=== PATIENT | male | born 1950 | race Caucasian/White ===

== ENCOUNTER 2021-12-11 17:14 | Emergency (ER) | payer MEDICARE ==
--- NOTE | 2021-12-11 17:18 | ERPHSYRPT ---
- History of Present Illness Time Seen by Provider: 12/11/21 17:18 Source: patient Exam Limitations: no limitations Physician History: This is a 71-year-old white male patient of nurse practitioner Karely Douglas who has a history of atrial fibrillation/flutter with a pacemaker and defibrillator in place and is on Xarelto who also has hypertension, elevated cholesterol and gastroesophageal reflux disease. The patient was brought in by a friend who helps care for him. 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 He felt hot came back in the house and then put a jacket on and went back outside to finish mowing. In the evening he started having a sore throat. This morning, his throat continued to feel worse and he was not speaking as clearly as usual per the patient friend. He is not short of breath. He is tolerating his saliva and is able to drink liquids without any problems. He arrives emergency department without stridor. He was having some chest pain in the last couple days but it was fleeting and intermittent and mild. He does not have chest pain at this time. Patient is scheduled for sleep study on 12/13/2021. He does have a low- grade fever today upon arrival to the emergency department. Timing/Duration: yesterday (Evening) Activities at Onset: none Severity of Dyspnea-Max: none Severity of Dyspnea-Current: none Possible Cause: no prior episodes Modifying Factors: Improves With: other (Mild sore throat when swallowing) Associated Symptoms: No chest pain/discomfort (No chest pain now but did have some intermittent fleeting mild anterior nonradiating chest tightness in the last couple of days) Allergies/Adverse Reactions: penicillin G Allergy (Verified 03/30/13 09:58) Home Medications: Omeprazole 20 MG [Prilosec 20 mg] 20 mg PO DAILY 03/30/13 [History] Amiodarone HCl [Pacerone] 200 mg PO DAILY 12/11/21 [History] Carvedilol [Coreg] 25 mg PO DAILY 12/11/21 [History] Finasteride 5 mg [Proscar 5 MG] 5 mg PO DAILY 12/11/21 [History] Pravastatin Sodium 20 mg PO DAILY 12/11/21 [History] Rivaroxaban [Xarelto] 20 mg PO DAILY 12/11/21 [History] Spironolactone 25 mg [Aldactone 25 MG] 25 mg PO DAILY 12/11/21 [History] Tamsulosin HCl 0.4 mg [Flomax 0.4 MG] 0.4 mg PO DAILY 12/11/21 [History] Hx Tetanus, Diphtheria Vaccination/Date Given: No Hx Influenza Vaccination/Date Given: No Hx Pneumococcal Vaccination/Date Given: No Travel Risk - International Travel Have you traveled outside of the country in past 3 weeks: No - Coronavirus Screening Are you exhibiting any of the following symptoms?: Yes Symptoms: Fever Close contact with a COVID-19 positive Pt in past 14-21 Days: No - Review of Systems Constitutional: Fever Eyes: No Symptoms Ears, Nose, & Throat: Throat Pain Respiratory: No Cough, No Dyspnea, No Stridor, No Wheezing Cardiac: Chest Pain (None now but in the last 2 to 3 days has been intermittent mild brief nonradiating anterior chest wall pain) Abdominal/Gastrointestinal: No Symptoms Genitourinary Symptoms: No Symptoms Musculoskeletal: No Symptoms Skin: No Symptoms Neurological: No Symptoms Psychological: No Symptoms Endocrine: No Symptoms Hematologic/Lymphatic: No Symptoms Immunological/Allergic: No Symptoms All Other Systems: Reviewed and Negative - Past Medical History Pertinent Past Medical History: Yes GI Medical History: GERD - Past Surgical History Past Surgical History: No - Social History Smoking Status: Former smoker Exposure to second hand smoke: No Drug Use: none Patient Lives Alone: No - Nursing Vital Signs Nursing Vital Signs: Initial Vital Signs Temperature 100.2 F 12/11/21 17:18 Pulse Rate 81 12/11/21 17:18 Respiratory Rate 22 12/11/21 17:18 Blood Pressure 177/99 12/11/21 17:18 O2 Sat by Pulse Oximetry 98 12/11/21 17:18 Pain Scale Pain Intensity 4 - Physical Exam General Appearance: no apparent distress, alert Eye Exam: PERRL/EOMI, eyes nml inspection Ears, Nose, Throat Exam: hearing grossly normal, pharyngeal erythema (Mild with associated mild pharyngeal swelling) Neck Exam: normal inspection, non-tender, supple, full range of motion Respiratory Exam: normal breath sounds, lungs clear, airway intact, No chest tenderness, No respiratory distress, No accessory muscle use, No rhonchi, No wheezing, No stridor Cardiovascular/Chest Exam: normal heart sounds, regular rate/rhythm Abdominal/Gastrointestinal Exam: soft, normal bowel sounds, No tenderness Rectal Exam: not done Extremity Exam: non-tender, normal range of motion, no calf tenderness, no pedal edema, pelvis stable, No normal inspection Neurologic Exam: alert, oriented x 3, cooperative, 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 There are few PVCs present on today's EKG. There is prolonged CA interval. When compared to EKG dated 03/30/2013 there is resolution of his atrial fibrillation/flutter) Ordered Tests: Active Orders 24 hr Category Date Time Status EKG-ER Only STAT Care 12/11/21 17:32 Active IV Insertion STAT Care 12/11/21 17:32 Active Pulse Oximetry (ED) STAT Care 12/11/21 17:32 Active CHEST 1 VIEW (PORTABLE) Stat Exams 12/11/21 17:33 Taken NECK SOFT TISSUE Stat Exams 12/11/21 17:34 Taken BLOOD CULTURE Stat Lab 12/11/21 17:40 Received CBC W DIFF Stat Lab 12/11/21 17:30 Completed CMP Stat Lab 12/11/21 17:30 Completed Union Screen Stat Lab 12/11/21 17:30 Completed PROTIME WITH INR Stat Lab 12/11/21 17:30 Completed TROPONIN Q3H Lab 12/11/21 17:30 Completed TROPONIN Q3H Lab 12/11/21 20:45 Ordered TROPONIN Q3H Lab 12/11/21 23:45 Ordered TROPONIN Q3H Lab 12/12/21 02:45 Ordered TROPONIN Q3H Lab 12/12/21 05:45 Ordered Medication Summary Discontinued Medications Generic Name Dose Route Start Last Admin Trade Name Freq PRN Reason Stop Dose Admin Hydrocodone Bitart/Acetaminophen 10 ml 12/11/21 17:34 12/11/21 17:39 Hydrocodone/Acetaminophen 5 Ml Udcup PO 12/11/21 17:35 10 ml STAT STA Administration Hydrocodone Bitart/Acetaminophen Confirm 12/11/21 17:38 Hydrocodone/Acetaminophen 5 Ml Udcup Administered 12/11/21 17:39 Dose 10 ml .ROUTE .STK-MED ONE Methylprednisolone Sodium 0 mg 12/11/21 17:35 12/11/21 17:39 Succinate 125 mg/ Sterile IV 12/11/21 17:36 125 mg Water 2 ml STAT ONE Administration Methylprednisolone Sodium Succinate Confirm 12/11/21 17:38 Methylprednis Sod Succ 125 Mg/2 Ml Vial Administered 12/11/21 17:39 Dose 125 mg .ROUTE .STK-MED ONE Sterile Water Confirm 12/11/21 17:38 Water For Injection,Sterile 10 Ml Vial Administered 12/11/21 17:39 Dose 10 ml IJ .STK-MED ONE Lab/Rad Data: Laboratory Result Diagrams 12/11/21 17:30 12/11/21 17:30 Laboratory Results 12/11/21 12/11/21 12/11/21 Range/Units 18:01 17:40 17:30 WBC (4.0-10.5) K/mm3 RBC (4.1-5.6) M/mm3 Hgb (12.5-18.0) gm/dl Hct (42-50) % MCV (78-100) fl MCH (26-32) pg MCHC (32-36) g/dl RDW (11.5-14.0) % Plt Count (150-450) K/mm3 MPV (7.5-11.0) fl Gran % (36.0-66.0) % Eos # (Auto) (0-0.5) Absolute Lymphs (auto) (1.0-4.6) Absolute Monos (auto) (0.0-1.3) Lymphocytes % (24.0-44.0) % Monocytes % (0.0-12.0) % Eosinophils % (0.00-5.0) % Basophils % (0.0-0.4) % Absolute Granulocytes (1.4-6.9) Basophils # (0-0.4) PT (9.4-12.5) SECONDS INR (0.8-3.0) Sodium (137-145) mmol/L Potassium (3.5-5.1) mmol/L Chloride (98-107) mmol/L Carbon Dioxide (22-30) mmol/L Anion Gap (5-15) MEQ/L BUN (9-20) mg/dL Creatinine (0.66-1.25) mg/dL Estimated GFR ML/MIN Glucose (74-106) mg/dL Calcium (8.4-10.2) mg/dL Total Bilirubin (0.2-1.3) mg/dL AST (17-59) U/L ALT (0-50) U/L Alkaline Phosphatase (38-126) U/L Troponin I (0.000-0.034) ng/mL Serum Total Protein (6.3-8.2) g/dL Albumin (3.5-5.0) g/dL Monoscreen POSITIVE (Negative) Influenza Type A Ag NEGATIVE (NEGATIVE) Influenza Type B Ag NEGATIVE (NEGATIVE) RSV (PCR) NEGATIVE (Negative) SARS-CoV-2 (PCR) NEGATIVE (NEGATIVE) Group A Strep Antibody NOT DETECTED (NEGATIVE) 12/11/21 12/11/21 12/11/21 Range/Units 17:30 17:30 17:30 WBC (4.0-10.5) K/mm3 RBC (4.1-5.6) M/mm3 Hgb (12.5-18.0) gm/dl Hct (42-50) % MCV (78-100) fl MCH (26-32) pg MCHC (32-36) g/dl RDW (11.5-14.0) % Plt Count (150-450) K/mm3 MPV (7.5-11.0) fl Gran % (36.0-66.0) % Eos # (Auto) (0-0.5) Absolute Lymphs (auto) (1.0-4.6) Absolute Monos (auto) (0.0-1.3) Lymphocytes % (24.0-44.0) % Monocytes % (0.0-12.0) % Eosinophils % (0.00-5.0) % Basophils % (0.0-0.4) % Absolute Granulocytes (1.4-6.9) Basophils # (0-0.4) PT 16.4 H (9.4-12.5) SECONDS INR 1.39 (0.8-3.0) Sodium 141 (137-145) mmol/L Potassium 4.5 (3.5-5.1) mmol/L Chloride 105 (98-107) mmol/L Carbon Dioxide 27 (22-30) mmol/L Anion Gap 14.2 (5-15) MEQ/L BUN 21 H (9-20) mg/dL Creatinine 0.92 (0.66-1.25) mg/dL Estimated GFR > 60.0 ML/MIN Glucose 105 (74-106) mg/dL Calcium 9.2 (8.4-10.2) mg/dL Total Bilirubin 0.70 (0.2-1.3) mg/dL AST 29 (17-59) U/L ALT 21 (0-50) U/L Alkaline Phosphatase 98 (38-126) U/L Troponin I < 0.012 (0.000-0.034) ng/mL Serum Total Protein 7.4 (6.3-8.2) g/dL Albumin 4.3 (3.5-5.0) g/dL Monoscreen (Negative) Influenza Type A Ag (NEGATIVE) Influenza Type B Ag (NEGATIVE) RSV (PCR) (Negative) SARS-CoV-2 (PCR) (NEGATIVE) Group A Strep Antibody (NEGATIVE) 12/11/21 Range/Units 17:30 WBC 10.3 (4.0-10.5) K/mm3 RBC 4.60 (4.1-5.6) M/mm3 Hgb 13.5 (12.5-18.0) gm/dl Hct 40.9 L (42-50) % MCV 88.9 (78-100) fl MCH 29.3 (26-32) pg MCHC 33.0 (32-36) g/dl RDW 14.9 H (11.5-14.0) % Plt Count 334 (150-450) K/mm3 MPV 10.5 (7.5-11.0) fl Gran % 65.7 (36.0-66.0) % Eos # (Auto) 0.39 (0-0.5) Absolute Lymphs (auto) 1.83 (1.0-4.6) Absolute Monos (auto) 1.30 (0.0-1.3) Lymphocytes % 17.8 L (24.0-44.0) % Monocytes % 12.6 H (0.0-12.0) % Eosinophils % 3.8 (0.00-5.0) % Basophils % 0.1 (0.0-0.4) % Absolute Granulocytes 6.75 (1.4-6.9) Basophils # 0.01 (0-0.4) PT (9.4-12.5) SECONDS INR (0.8-3.0) Sodium (137-145) mmol/L Potassium (3.5-5.1) mmol/L Chloride (98-107) mmol/L Carbon Dioxide (22-30) mmol/L Anion Gap (5-15) MEQ/L BUN (9-20) mg/dL Creatinine (0.66-1.25) mg/dL Estimated GFR ML/MIN Glucose (74-106) mg/dL Calcium (8.4-10.2) mg/dL Total Bilirubin (0.2-1.3) mg/dL AST (17-59) U/L ALT (0-50) U/L Alkaline Phosphatase (38-126) U/L Troponin I (0.000-0.034) ng/mL Serum Total Protein (6.3-8.2) g/dL Albumin (3.5-5.0) g/dL Monoscreen (Negative) Influenza Type A Ag (NEGATIVE) Influenza Type B Ag (NEGATIVE) RSV (PCR) (Negative) SARS-CoV-2 (PCR) (NEGATIVE) Group A Strep Antibody (NEGATIVE) - Progress Progress: improved, re-examined Air Movement: good Progress Note: 12/11/21 18:21 Chest x-ray shows no acute cardiopulmonary process. X-ray of the soft tissue of the neck there is a question of a area of inflammation in the infraglottic region. I will have [facility] read the film. Depending on their interpretation, we may or may not need to obtain a CT scan of the soft tissue of the neck. Clinically, patient does not have any shortness of breath, he is oxygenating well there is no stridor. 12/11/21 18:58 The x-ray of the soft tissues of the neck was sent to [facility]. They do not see any acute pathology/process in the soft tissues in the neck. Blood Culture(s) Obtained: Yes Counseled pt/family regarding: lab results, diagnosis, need for follow-up, rad results - Departure Departure Disposition: Home Clinical Impression: Mononucleosis, Viral pharyngitis Condition: Stable Critical Care Time: No Referrals: JHOANA DOUGLAS [COURTESY STAFF] - Follow up/PCP as directed Additional Instructions: Drink plenty of cold water. Take your medication as prescribed. Follow-up with your primary care physician for further management. Prescriptions: Hydrocodone/Acetaminophen [Hydrocodone-Acetamn 7.5-325/15] 10 ml PO Q8H PRN PRN #120 ml MDD 30 ml PRN Reason: Cough Prednisone 10 mg [Deltasone 10 mg] 10 mg PO TID #12 tablet
[2021-12-11] MEDS ORDERED: HYDROCODONE-ACETAMIN 2.5-108/5 ML SOLUTION PO STA ×2 (17:34→19:04)
[2021-12-11] MEDS ORDERED: solu-MEDROL 125 MG, Sterile H2O 10 ml 2 ML IV ONE ×2 (17:35)
[2021-12-11] MEDS ORDERED: Sterile H2O 10 ml IJ ONE (17:38)
[2021-12-11] MEDS ORDERED: solu-MEDROL ONE (17:38)
[2021-12-11] MEDS ORDERED: HYDROCODONE-ACETAMIN 2.5-108/5 ML SOLUTION ONE ×2 (17:38→19:09)
[2021-12-11 18:00] LABS: Absolute Neutrophil Ct (ANC) 6.75 (1.4-6.9); Basophil (Absolute #) 0.01 (0-0.4); Eosinophil % 3.8 % (0.00-5.0); Eosinophil (Absolute #) 0.39 (0-0.5); Hematocrit 40.9 % (42-50); Hemoglobin 13.5 gm/dl (12.5-18.0); Lymphocyte (Absolute #) 1.83 (1.0-4.6); Lymphocytes % 17.8 % (24.0-44.0); Mean Cell Volume 88.9 fl (78-100); Mean Corpuscular Hemoglobin 29.3 pg (26-32); Mean Platelet Volume 10.5 fl (7.5-11.0); Monocytes % 12.6 % (0.0-12.0); Neutrophil % 65.7 % (36.0-66.0); Platelet Count 334 K/mm3 (150-450); Red Cell Distribution Width 14.9 % (11.5-14.0); White Blood Count 10.3 K/mm3 (4.0-10.5)
[2021-12-11 18:03] LABS: INR 1.39 (0.8-3.0); PROTIME 16.4 SECONDS (9.4-12.5)
[2021-12-11 18:21] LABS: ALBUMIN 4.3 g/dL (3.5-5.0); ALKALINE PHOSPHATASE 98 U/L (38-126); ANION GAP 14.2 MEQ/L (5-15); BLOOD UREA NITROGEN 21 mg/dL (9-20); CHLORIDE 105 mmol/L (98-107); Calcium 9.2 mg/dL (8.4-10.2); Carbon Dioxide 27 mmol/L (22-30); Creatinine 1 0.92 mg/dL (0.66-1.25); EST GLOMERULAR FILTRATION RATE > 60.0 ML/MIN; Glucose 105 mg/dL (74-106); Potassium 4.5 mmol/L (3.5-5.1); SGOT/AST 29 U/L (17-59); SGPT/ALT 21 U/L (0-50); SODIUM 141 mmol/L (137-145); Total Protein 7.4 g/dL (6.3-8.2)
[2021-12-11 18:43] LABS: INFLUENZA A NEGATIVE (NEGATIVE); INFLUENZA B NEGATIVE (NEGATIVE); RESPIRATORY SYNCTIAL VIRUS NEGATIVE (Negative); SARS-CoV-2 Xpert Express NEGATIVE (NEGATIVE)
[2021-12-11] MEDS ORDERED: DELTASONE 10 MG PO ONE (19:04)
[2021-12-11 19:06] VITALS: BP 162/110; PULSE 77; O2SAT 95
[2021-12-11] MEDS ORDERED: DELTASONE 20 MG ONE (19:09)
--- NOTE | 2021-12-11 19:36 | XRAY ---
Indication: Cough and hoarseness. Comparison: March 30, 2013. Portable chest remains hyperinflated and clear. Heart not enlarged for AP portable technique with new left pacemaker. Bony thorax intact. Impression: Continued nonacute hyperinflated chest with chronic features.
--- NOTE | 2021-12-11 19:38 | XRAY ---
Indication: Cough and hoarseness. Comparison: None AP/lateral soft tissue neck demonstrates widely patent supra and infraglottic airway. Normal epiglottis. Osseous structures intact with osteopenia and mild multilevel cervical degenerative spondylosis. Patient edentulous. Comment: Preliminary interpretation made by C. No critical discrepancy.
[2021-12-12] MEDS ORDERED: DELTASONE 20 MG PO SCH (10:00)
== END 2021-12-11 19:33 | disposition home or self-care (01) ==
LOC: ED 17:14
DX: B27.90 Infectious mononucleosis, unspecified without complication (principal); J02.9 Acute pharyngitis, unspecified; R50.9 Fever, unspecified; I10 Essential (primary) hypertension; E78.5 Hyperlipidemia, unspecified; K21.9 Gastro-esophageal reflux disease without esophagitis; Z79.01 Long term (current) use of anticoagulants; Z79.891 Long term (current) use of opiate analgesic; Z79.52 Long term (current) use of systemic steroids; Z95.810 Presence of automatic (implantable) cardiac defibrillator
CPT/HCPCS: 0241U; 36000; 36415; 70360; 71045; 80053; 84484; 85025; 85610; 86308; 87040; 87651; 93005; 94760; 96374; 99284; J2930; A9270-GY

== ENCOUNTER 2022-08-17 07:50 | Emergency (ER) | payer MEDICARE ==
[2022-08-17] MEDS ORDERED: Sodium Chloride 0.9% 1000 ML 1,000 ML IV SCH (08:15)
[2022-08-17] MEDS ORDERED: BABY ASPIRIN 81 MG CHEW PO ONE (08:20)
--- NOTE | 2022-08-17 08:20 | ERPHSYRPT ---
- History of Present Illness Time Seen by Provider: 08/17/22 08:00 Historian: patient Exam Limitations: no limitations Patient Subjective Stated Complaint: Patient states "I started having right sided chest pain at 0400 this morning. I vomited once. I woke up shaking and my chest was hurting." Triage Nursing Assessment: Patient ambulated to ER bed with steady but slumped over gait. Alert and oriented x3. Accompanied by brother in law who helps take care of patient. No apparent respiratory distress. Patient calm and cooperative. Reports right sided chest pain that does not radiate. States he vomited one time this morning and had some dizziness this morning. Reported that chest pain comes and goes. Physician History: Patient is a 71-year-old male who presents with a complaint of chest pain he awoke from sleep with it this morning he was quite dizzy he was trembling had some nausea vomited once. He also was diaphoretic he is on Xarelto for his pacemaker defibrillator. He has multiple risk factors including hypertension family history and unknown lipid status. His claims vice president is Dr. Arenas show Timing/Duration: today Activities at Onset: sleep Quality: aching, pressure Location: substernal Chest Pain Radiation: no radiation Severity of Pain-Max: moderate (6 of 10) Severity of Pain-Current: mild Associated Symptoms: nausea, vomiting, diaphoresis, weakness Prior Chest Pain/Cardiac Workup: cardiac cath Nitro Today/Relief: no nitro taken today Aspirin Treatment Today: no aspirin today Allergies/Adverse Reactions: penicillin G Allergy (Verified 08/17/22 07:51) Home Medications: Omeprazole 20 MG [Prilosec 20 mg] 40 mg PO DAILY 03/30/13 [History] Amiodarone HCl [Pacerone] 200 mg PO DAILY 12/11/21 [History] Carvedilol [Coreg] 25 mg PO DAILY 12/11/21 [History] Finasteride 5 mg [Proscar 5 MG] 5 mg PO DAILY 12/11/21 [History] Pravastatin Sodium 20 mg PO DAILY 12/11/21 [History] Rivaroxaban [Xarelto] 20 mg PO DAILY 12/11/21 [History] Spironolactone 25 mg [Aldactone 25 MG] 25 mg PO DAILY 12/11/21 [History] Tamsulosin HCl 0.4 mg [Flomax 0.4 MG] 0.4 mg PO DAILY 12/11/21 [History] Famotidine 40 mg PO DAILY 08/17/22 [History] Hx Tetanus, Diphtheria Vaccination/Date Given: No Hx Influenza Vaccination/Date Given: Yes Hx Pneumococcal Vaccination/Date Given: Yes Immunizations Up to Date: Yes Travel Risk - International Travel Have you traveled outside of the country in past 3 weeks: No - Coronavirus Screening Are you exhibiting any of the following symptoms?: No Close contact with a COVID-19 positive Pt in past 14-21 Days: No - Vaccine Status Have you recieved a Covid-19 vaccination: Yes 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: [employer] - Vaccination Dates Date of 2cond Vaccination (if applicable): unknown - Review of Systems Constitutional: No Fever, No Chills Eyes: No Symptoms Ears, Nose, & Throat: No Symptoms Respiratory: No Cough, No Dyspnea Cardiac: Chest Pain, No Edema, No Syncope Abdominal/Gastrointestinal: Nausea, Vomiting, No Abdominal Pain, No Diarrhea Genitourinary Symptoms: No Dysuria Musculoskeletal: No Back Pain, No Neck Pain Skin: No Rash Neurological: Vertigo, No Dizziness, No Focal Weakness, No Sensory Changes Psychological: No Symptoms Endocrine: No Symptoms All Other Systems: Reviewed and Negative - Past Medical History Pertinent Past Medical History: Yes Cardiac History: Coronary Artery Disease, Hypertension Respiratory History: COPD Musculoskeletal History: Arthritis GI Medical History: GERD Other Medical History: cancer-colon - Past Surgical History Past Surgical History: Yes Other Surgical History: part of colon removed. pacemaker - Social History Smoking Status: Former smoker Exposure to second hand smoke: Yes Drug Use: none Patient Lives Alone: No (with brother) - Nursing Vital Signs Nursing Vital Signs: Initial Vital Signs Temperature 97.5 F 08/17/22 07:51 Pulse Rate 63 08/17/22 07:51 Respiratory Rate 18 08/17/22 07:51 Blood Pressure 121/64 08/17/22 07:51 O2 Sat by Pulse Oximetry 97 08/17/22 07:51 Pain Scale Pain Intensity 6 - Physical Exam General Appearance: no apparent distress, alert Eye Exam: PERRL/EOMI, eyes nml inspection Ears, Nose, Throat Exam: normal ENT inspection, moist mucous membranes Neck Exam: normal inspection, non-tender, supple, full range of motion Respiratory Exam: normal breath sounds, lungs clear, No respiratory distress Cardiovascular Exam: regular rate/rhythm, normal heart sounds Gastrointestinal/Abdomen Exam: soft, No tenderness, No mass Back Exam: normal inspection, No CVA tenderness, No vertebral tenderness Extremity Exam: normal inspection, normal range of motion Neurologic Exam: alert, oriented x 3, cooperative, normal mood/affect, sensation nml, other (Patient seems slow), No motor deficits Skin Exam: normal color, warm, dry SpO2: 97 - Course Nursing assessment & vital signs reviewed: Yes EKG Interpreted by Me: RATE ([id number]), Sinus Rhythm, NORMAL AXIS, LAFB, Right Bundle Branch Block, Non-specific ST Changes Ordered Tests: Active Orders 24 hr Category Date Time Status EKG-ER Only STAT Care 08/17/22 08:05 Active IV Insertion STAT Care 08/17/22 08:05 Active CHEST 1 VIEW (PORTABLE) Stat Exams 08/17/22 08:05 Completed AMYLASE Stat Lab 08/17/22 07:55 Completed CBC W DIFF Stat Lab 08/17/22 07:55 Completed CMP Stat Lab 08/17/22 07:55 Completed D-DIMER QUANTITATIVE Stat Lab 08/17/22 07:55 Completed LIPASE Stat Lab 08/17/22 07:55 Completed Lactic Acid Stat Lab 08/17/22 08:15 Completed MAGNESIUM Stat Lab 08/17/22 07:55 Completed NT PRO BNP Stat Lab 08/17/22 07:55 Completed PROTIME WITH INR Stat Lab 08/17/22 07:55 Completed PTT Stat Lab 08/17/22 07:55 Completed TROPONIN Q4H Lab 08/17/22 07:55 Completed TROPONIN Q4H Lab 08/17/22 10:00 Completed TROPONIN Q4H Lab 08/17/22 16:15 Ordered Medication Summary Generic Name Dose Route Start Last Admin Trade Name Freq PRN Reason Stop Dose Admin Sodium Chloride 1,000 mls @ 100 mls/hr 08/17/22 08:15 08/17/22 08:23 Sodium Chloride 0.9% 1000 Ml IV 09/16/22 08:14 100 mls/hr .Q10H IDANIA Administration Discontinued Medications Generic Name Dose Route Start Last Admin Trade Name Freq PRN Reason Stop Dose Admin Aspirin 324 mg 08/17/22 08:20 08/17/22 08:23 Aspirin 81 Mg Tab.Chew PO 08/17/22 08:21 324 mg STAT ONE Administration Aspirin Confirm 08/17/22 08:21 Aspirin 81 Mg Tab.Chew Administered 08/17/22 08:22 Dose 324 mg .ROUTE .STK-MED ONE Lab/Rad Data: Laboratory Result Diagrams 08/17/22 07:55 08/17/22 07:55 Laboratory Results 08/17/22 08/17/22 08/17/22 Range/Units 10:00 08:25 08:15 WBC (4.0-10.5) x10^3/uL RBC (4.1-5.6) x10^6/uL Hgb (12.5-18.0) g/dL Hct (42-50) % MCV (78-100) fL MCH (26-32) pg MCHC (32-36) g/dL RDW (11.5-14.0) % Plt Count (150-450) x10^3/uL MPV (7.5-11.0) fL Gran % (36.0-66.0) % Immature Gran % (Auto) (0.00-0.4) % Nucleat RBC Rel Count (0.00-0.1) % Eos # (Auto) (0-0.5) x10^3/uL Immature Gran # (Auto) (0.00-0.03) x10^3u/L Absolute Lymphs (auto) (1.0-4.6) x10^3/uL Absolute Monos (auto) (0.0-1.3) x10^3/uL Absolute Nucleated RBC (0.00-0.01) x10^3u/L Lymphocytes % (24.0-44.0) % Monocytes % (0.0-12.0) % Eosinophils % (0.00-5.0) % Basophils % (0.0-0.4) % Absolute Granulocytes (1.4-6.9) x10^3/uL Basophils # (0-0.4) x10^3/uL PT (9.4-12.5) SECONDS INR (0.8-3.0) APTT (25.1-36.5) SECONDS D-Dimer (0.0-0.50) mg/L Sodium (137-145) mmol/L Potassium (3.5-5.1) mmol/L Chloride (98-107) mmol/L Carbon Dioxide (22-30) mmol/L Anion Gap (5-15) MEQ/L BUN (9-20) mg/dL Creatinine (0.66-1.25) mg/dL Estimated GFR ML/MIN Glucose (74-106) mg/dL Lactic Acid 2.0 (0.4-2.0) Calcium (8.4-10.2) mg/dL Magnesium (1.6-2.3) mg/dL Total Bilirubin (0.2-1.3) mg/dL AST (17-59) U/L ALT (0-50) U/L Alkaline Phosphatase (38-126) U/L Troponin I < 0.012 (0.000-0.034) ng/mL NT-Pro-B Natriuret Pep (0-900) pg/mL Serum Total Protein (6.3-8.2) g/dL Albumin (3.5-5.0) g/dL Amylase (30-110) U/L Lipase (23-300) U/L Influenza Type A Ag NEGATIVE (NEGATIVE) Influenza Type B Ag NEGATIVE (NEGATIVE) RSV (PCR) NEGATIVE (Negative) SARS-CoV-2 (PCR) NEGATIVE (NEGATIVE) 08/17/22 08/17/22 08/17/22 Range/Units 07:55 07:55 07:55 WBC (4.0-10.5) x10^3/uL RBC (4.1-5.6) x10^6/uL Hgb (12.5-18.0) g/dL Hct (42-50) % MCV (78-100) fL MCH (26-32) pg MCHC (32-36) g/dL RDW (11.5-14.0) % Plt Count (150-450) x10^3/uL MPV (7.5-11.0) fL Gran % (36.0-66.0) % Immature Gran % (Auto) (0.00-0.4) % Nucleat RBC Rel Count (0.00-0.1) % Eos # (Auto) (0-0.5) x10^3/uL Immature Gran # (Auto) (0.00-0.03) x10^3u/L Absolute Lymphs (auto) (1.0-4.6) x10^3/uL Absolute Monos (auto) (0.0-1.3) x10^3/uL Absolute Nucleated RBC (0.00-0.01) x10^3u/L Lymphocytes % (24.0-44.0) % Monocytes % (0.0-12.0) % Eosinophils % (0.00-5.0) % Basophils % (0.0-0.4) % Absolute Granulocytes (1.4-6.9) x10^3/uL Basophils # (0-0.4) x10^3/uL PT 18.2 H (9.4-12.5) SECONDS INR 1.81 (0.8-3.0) APTT 43.3 H (25.1-36.5) SECONDS D-Dimer < 0.19 (0.0-0.50) mg/L Sodium 136 L (137-145) mmol/L Potassium 4.6 (3.5-5.1) mmol/L Chloride 107 (98-107) mmol/L Carbon Dioxide 21 L (22-30) mmol/L Anion Gap 12.0 (5-15) MEQ/L BUN 23 H (9-20) mg/dL Creatinine 1.00 (0.66-1.25) mg/dL Estimated GFR > 60.0 ML/MIN Glucose 113 H (74-106) mg/dL Lactic Acid (0.4-2.0) Calcium 8.5 (8.4-10.2) mg/dL Magnesium 2.0 (1.6-2.3) mg/dL Total Bilirubin 0.80 (0.2-1.3) mg/dL AST 34 (17-59) U/L ALT 23 (0-50) U/L Alkaline Phosphatase 85 (38-126) U/L Troponin I < 0.012 (0.000-0.034) ng/mL NT-Pro-B Natriuret Pep 334 (0-900) pg/mL Serum Total Protein 7.1 (6.3-8.2) g/dL Albumin 4.1 (3.5-5.0) g/dL Amylase 76 (30-110) U/L Lipase 53 (23-300) U/L Influenza Type A Ag (NEGATIVE) Influenza Type B Ag (NEGATIVE) RSV (PCR) (Negative) SARS-CoV-2 (PCR) (NEGATIVE) 08/17/22 Range/Units 07:55 WBC 6.3 (4.0-10.5) x10^3/uL RBC 4.23 (4.1-5.6) x10^6/uL Hgb 12.5 (12.5-18.0) g/dL Hct 38.3 L (42-50) % MCV 90.5 (78-100) fL MCH 29.6 (26-32) pg MCHC 32.6 (32-36) g/dL RDW 14.5 H (11.5-14.0) % Plt Count 288 (150-450) x10^3/uL MPV 10.6 (7.5-11.0) fL Gran % 64.1 (36.0-66.0) % Immature Gran % (Auto) 0.3 (0.00-0.4) % Nucleat RBC Rel Count 0.0 (0.00-0.1) % Eos # (Auto) 0.27 (0-0.5) x10^3/uL Immature Gran # (Auto) 0.02 (0.00-0.03) x10^3u/L Absolute Lymphs (auto) 1.34 (1.0-4.6) x10^3/uL Absolute Monos (auto) 0.61 (0.0-1.3) x10^3/uL Absolute Nucleated RBC 0.00 (0.00-0.01) x10^3u/L Lymphocytes % 21.2 L (24.0-44.0) % Monocytes % 9.6 (0.0-12.0) % Eosinophils % 4.3 (0.00-5.0) % Basophils % 0.5 (0.0-0.4) % Absolute Granulocytes 4.06 (1.4-6.9) x10^3/uL Basophils # 0.03 (0-0.4) x10^3/uL PT (9.4-12.5) SECONDS INR (0.8-3.0) APTT (25.1-36.5) SECONDS D-Dimer (0.0-0.50) mg/L Sodium (137-145) mmol/L Potassium (3.5-5.1) mmol/L Chloride (98-107) mmol/L Carbon Dioxide (22-30) mmol/L Anion Gap (5-15) MEQ/L BUN (9-20) mg/dL Creatinine (0.66-1.25) mg/dL Estimated GFR ML/MIN Glucose (74-106) mg/dL Lactic Acid (0.4-2.0) Calcium (8.4-10.2) mg/dL Magnesium (1.6-2.3) mg/dL Total Bilirubin (0.2-1.3) mg/dL AST (17-59) U/L ALT (0-50) U/L Alkaline Phosphatase (38-126) U/L Troponin I (0.000-0.034) ng/mL NT-Pro-B Natriuret Pep (0-900) pg/mL Serum Total Protein (6.3-8.2) g/dL Albumin (3.5-5.0) g/dL Amylase (30-110) U/L Lipase (23-300) U/L Influenza Type A Ag (NEGATIVE) Influenza Type B Ag (NEGATIVE) RSV (PCR) (Negative) SARS-CoV-2 (PCR) (NEGATIVE) - Progress Progress: improved Air Movement: good Blood Culture(s) Obtained: No Antibiotics given: No - Departure Departure Disposition: Home Clinical Impression: Atypical chest pain Condition: Stable Critical Care Time: No Referrals: CORBIN ARGUETA [employer]ICER [Primary Care Provider] - Follow up/PCP as directed Instructions: Chest Pain (DC) Prescriptions: Ondansetron ODT 4 MG [Zofran Odt 4 mg] 4 mg PO Q6H PRN PRN #10 tablet PRN Reason: Vomiting
[2022-08-17] MEDS ORDERED: Sodium Chloride 0.9% 1000 ML 1,000 ML ONE (08:21)
[2022-08-17] MEDS ORDERED: BABY ASPIRIN 81 MG CHEW ONE (08:21)
[2022-08-17 08:22] LABS: Absolute Neutrophil Ct (ANC) 4.06 x10^3/uL (1.4-6.9); Basophil (Absolute #) 0.03 x10^3/uL (0-0.4); Eosinophil % 4.3 % (0.00-5.0); Eosinophil (Absolute #) 0.27 x10^3/uL (0-0.5); Hematocrit 38.3 % (42-50); Hemoglobin 12.5 g/dL (12.5-18.0); Lymphocyte (Absolute #) 1.34 x10^3/uL (1.0-4.6); Lymphocytes % 21.2 % (24.0-44.0); Mean Cell Volume 90.5 fL (78-100); Mean Corpuscular Hemoglobin 29.6 pg (26-32); Mean Corpuscular Hgb Concent. 32.6 g/dL (32-36); Mean Platelet Volume 10.6 fL (7.5-11.0); Monocyte (Absolute #) 0.61 x10^3/uL (0.0-1.3); Monocytes % 9.6 % (0.0-12.0); Neutrophil % 64.1 % (36.0-66.0); Platelet Count 288 x10^3/uL (150-450); Red Blood Count 4.23 x10^6/uL (4.1-5.6); Red Cell Distribution Width 14.5 % (11.5-14.0); White Blood Count 6.3 x10^3/uL (4.0-10.5)
[2022-08-17 08:37] LABS: D-DIMER QUANTITATIVE < 0.19 mg/L (0.0-0.50); INR 1.81 (0.8-3.0); PROTIME 18.2 SECONDS (9.4-12.5); PTT 43.3 SECONDS (25.1-36.5)
[2022-08-17 08:44] LABS: ALBUMIN 4.1 g/dL (3.5-5.0); ALKALINE PHOSPHATASE 85 U/L (38-126); AMYLASE 76 U/L (30-110); BLOOD UREA NITROGEN 23 mg/dL (9-20); CHLORIDE 107 mmol/L (98-107); Calcium 8.5 mg/dL (8.4-10.2); Carbon Dioxide 21 mmol/L (22-30); EST GLOMERULAR FILTRATION RATE > 60.0 ML/MIN; Glucose 113 mg/dL (74-106); LIPASE 53 U/L (23-300); NT PRO BNP 334 pg/mL (0-900); SGOT/AST 34 U/L (17-59); SGPT/ALT 23 U/L (0-50); SODIUM 136 mmol/L (137-145); Total Protein 7.1 g/dL (6.3-8.2)
[2022-08-17 08:47] LABS: Potassium 4.6 mmol/L (3.5-5.1)
--- NOTE | 2022-08-17 09:09 | XRAY ---
Indication: Chest discomfort. Comparison: December 11, 2021 Portable chest again demonstrates chronic right hemidiaphragm elevation with minimal subsegmental atelectasis/scarring. No focal infiltrate, consolidation, or large effusion. Heart not enlarged again with left pacemaker. Bony thorax intact again with mild osteopenia and degenerative changes. Impression: Continued nonacute chest with chronic features.
[2022-08-17 09:17] LABS: INFLUENZA A NEGATIVE (NEGATIVE); INFLUENZA B NEGATIVE (NEGATIVE); RESPIRATORY SYNCTIAL VIRUS NEGATIVE (Negative); SARS-CoV-2 Xpert Express NEGATIVE (NEGATIVE)
[2022-08-17 11:09] VITALS: BP 149/91; PULSE 65
[2022-08-17 11:14] VITALS: O2SAT 97
== END 2022-08-17 11:23 | disposition home or self-care (01) ==
LOC: ED 07:50
DX: R07.89 Other chest pain (principal); R42 Dizziness and giddiness; R11.2 Nausea with vomiting, unspecified; I10 Essential (primary) hypertension; I25.10 Atherosclerotic heart disease of native coronary artery without angina pectoris; Z79.01 Long term (current) use of anticoagulants; Z79.899 Other long term (current) drug therapy; Z20.828 Contact with and (suspected) exposure to other viral communicable diseases
CPT/HCPCS: 0241U; 36000; 36415; 71045; 80053; 82150; 83605; 83690; 83735; 83880; 84484; 85025; 85379; 85610; 85730; 93005; 99284; A9270-GY

== ENCOUNTER 2022-10-28 05:21 | Day surgery (SDC) | payer MEDICARE ==
[2022-10-28] MEDS ORDERED: Lactated Ringers 1,000 ML IV SCH (06:30)
[2022-10-28] MEDS ORDERED: Versed 2 MG/2 ML Injection ONE (07:57)
[2022-10-28] MEDS ORDERED: Xylocaine-Mpf 2% 5 Ml Vial ONE (07:57)
[2022-10-28] MEDS ORDERED: DIPRIVAN 200 MG/20 ML IV ONE (07:57)
--- NOTE | 2022-10-28 08:39 | OP ---
SURGERY DATE/TIME: 10/28/2022 0759 PREOPERATIVE DIAGNOSIS: History of colon cancer. POSTOPERATIVE DIAGNOSIS: Sigmoid diverticulosis and normal colon status post partial right hemicolectomy. PROCEDURE: Colonoscopy. SURGEON: Dr. Nelson. ANESTHESIA: MAC. Medications given by anesthesia department. HISTORY: The patient is a 71-year-old white male patient who presents now for colonoscopic evaluation. His [id number] reports the patient has had cancer approximately 15 years ago. He had seen his oncologist recently who suggested he repeat the colonoscopy. The patient was appraised of the risks of the procedure including the risk of perforation, phlebitis, untoward reaction to medication, bleeding and missed lesions. The patient verbalized his understanding and desired to have the procedure performed. DESCRIPTION OF PROCEDURE: The patient was given the medications by the anesthesia department. He had continuous pulse oximetry, ECG monitoring and intermittent blood pressure monitoring during the examination. He was placed in the left lateral decubitus position. A digital rectal examination was performed and revealed normal anal sphincter tone, no masses and normal prostate. The flexible Olympus pediatric colonoscope was used to intubate the rectum. A view of the colon was developed sequentially to the area of the right colon where anastomotic area was noted. No evidence of mucosal abnormalities were noted in this area. The scope was withdrawn from the patient with careful inspection upon withdrawal. No mucosal lesions other than sigmoid diverticula were noted. The scope was removed from the patient who tolerated the procedure well and was sent back to OP recovery in good condition. The prep was noted to be fair to at times poor.
[2022-10-28 08:57] VITALS: O2SAT 95
[2022-10-28 09:05] VITALS: BP 126/83; PULSE 65
== END 2022-10-28 09:20 | disposition home or self-care (01) ==
LOC: SDC 05:21
PROVIDERS: ATTEND Family Medicine
DX: Z08 Encounter for follow-up examination after completed treatment for malignant neoplasm (principal); Z85.038 Personal history of other malignant neoplasm of large intestine; K57.30 Diverticulosis of large intestine without perforation or abscess without bleeding; Z90.49 Acquired absence of other specified parts of digestive tract
CPT/HCPCS: J2250; J2704